=== PATIENT | male | born 1945 | race Caucasian/White ===

== ENCOUNTER 2023-08-23 08:16 | Day surgery (SDC) | payer MEDICARE ==
[2023-08-23 09:48] VITALS: BP 134/66; TEMP 98.6
[2023-08-23] MEDS ORDERED: PROPOFOL 0 ML ONE (11:14)
== END 2023-08-23 12:38 | disposition home or self-care (01) ==
LOC: CSHSDC 08:16
PROVIDERS: ATTEND Internal Medicine Cardiovascular Disease
PROC: B246ZZ4 Ultrasonography of Right and Left Heart, Transesophageal (ICD-10-PCS; principal; 2023-08-23)
DX: I08.1 Rheumatic disorders of both mitral and tricuspid valves (principal); I48.0 Paroxysmal atrial fibrillation; I25.10 Atherosclerotic heart disease of native coronary artery without angina pectoris; I11.0 Hypertensive heart disease with heart failure; I50.30 Unspecified diastolic (congestive) heart failure; E78.5 Hyperlipidemia, unspecified; G47.30 Sleep apnea, unspecified; E03.9 Hypothyroidism, unspecified; M10.9 Gout, unspecified; Z96.652 Presence of left artificial knee joint; Z95.0 Presence of cardiac pacemaker; Z95.818 Presence of other cardiac implants and grafts; Z79.82 Long term (current) use of aspirin; Z79.899 Other long term (current) drug therapy; Z79.890 Hormone replacement therapy; Z88.8 Allergy status to other drugs, medicaments and biological substances
CPT/HCPCS: 93312; J2704